=== PATIENT | male | born 1930 | race Caucasian/White ===

== ENCOUNTER 2018-02-11 07:13 | Day surgery (SDC) | payer MEDICARE, OTHER ==
[~2018-02-11 07:13] MED LIST: Sodium Chloride 0.9% 10 ML Syringe FLUSH PRN
[2018-02-11] MEDS ORDERED: Lactated Ringers 1,000 ML IV SCH (08:30)
[2018-02-11] MEDS ORDERED: Propofol 200 MG/20 ML SDV IV ONE (09:25)
--- NOTE | 2018-02-11 14:38 | OR ---
DATE OF OPERATION: 02/11/2018 SURGEON: Lavell Gil MD PREOPERATIVE DIAGNOSIS: Cataract, right eye. POSTOPERATIVE DIAGNOSIS: Cataract, right eye. PROCEDURES: Phacoemulsification of cataract right eye with the placement of an Gilmore model, ZCB00, 21.0 diopter, foldable, posterior chamber intraocular lens. WARP STARTER: None. DESCRIPTION OF PROCEDURE: Peribulbar anesthetic was performed using a mixture of 2% lidocaine with Wydase. The patient was prepped and draped in the usual fashion. A 3 mm fornix based conjunctival flap was performed at the 10 o'clock position. Hemostasis was obtained using diathermy, and a 2.8 mm grooved near clear corneal incision was then made. A stab incision was made into the anterior chamber at the 12 o'clock position and a second stab wound incision was made underlying the grooved near clear corneal incision. Viscoat was instilled into the anterior chamber, and a continuous tear capsulotomy was performed. Hydrodissection was accomplished with balanced salt solution, and the nucleus was removed in a divide and conquer fashion. The remaining cortical material was removed with the irrigation and aspiration unit. Viscoat was instilled into the anterior chamber, and an Gilmore model, ZCB00, 21.0 diopter, foldable, posterior chamber intraocular lens was placed into the capsular bag, the haptics being positioned at the 3 and 9 o'clock positions. The residual Viscoat was removed from the anterior chamber and the anterior chamber reformed with balanced salt solution. The wound was checked and noted to be watertight. The conjunctiva was secured in its original position with diathermy. Alphagan and Maxitrol Ointment were then placed into the patient's eye. The patient tolerated the procedure well and it was without complication. Elapsed phacoemulsification time was 49.1 seconds. Postoperative instructions as related to activities as well as medications were reviewed with the patient. The patient was instructed to return to see me on the day following surgery for the first postoperative check. The patient was also instructed to contact me prior to that time if the patient was to have any problems. /[id number] DEG/MODL CC: JEFERSON CHRISTINE PA-C MTDD
== END 2018-02-11 11:25 | disposition home or self-care (01) ==
LOC: FB.SDS 07:13
PROVIDERS: ATTEND Ophthalmology
DX: E11.36 Type 2 diabetes mellitus with diabetic cataract (principal); H25.813 Combined forms of age-related cataract, bilateral; I11.0 Hypertensive heart disease with heart failure; I50.9 Heart failure, unspecified; K21.9 Gastro-esophageal reflux disease without esophagitis; N40.1 Benign prostatic hyperplasia with lower urinary tract symptoms; Z79.4 Long term (current) use of insulin; Z79.82 Long term (current) use of aspirin; Z79.899 Other long term (current) drug therapy; Z95.1 Presence of aortocoronary bypass graft; Z87.891 Personal history of nicotine dependence
CPT/HCPCS: 00142; 66984; 82962; C1780; J7050; J7120; J2704

== ENCOUNTER 2018-03-11 07:53 | Day surgery (SDC) | payer MEDICARE, OTHER ==
[2018-03-11] MEDS ORDERED: Lactated Ringers 1,000 ML IV SCH (08:15)
[2018-03-11] MEDS ORDERED: Propofol 200 MG/20 ML SDV IV ONE (10:00)
--- NOTE | 2018-03-12 09:49 | OR ---
DATE OF OPERATION: 03/11/2018 SURGEON: Lavell Gil MD PREOPERATIVE DIAGNOSIS: Cataract, left eye. POSTOPERATIVE DIAGNOSIS: Cataract, left eye. PROCEDURES: Phacoemulsification of cataract, left eye, with the placement of an Gilmore model, ZCB00, 21.0 diopter, foldable, posterior chamber intraocular lens. LINER CHECKER: None. DESCRIPTION OF PROCEDURE: Peribulbar anesthetic was performed using a mixture of 2% lidocaine with Wydase. The patient was prepped and draped in the usual fashion. A 3 mm fornix based conjunctival flap was performed at the 10 o'clock position. Hemostasis was obtained using diathermy, and a 2.8 mm grooved near clear corneal incision was then made. A stab incision was made into the anterior chamber at the 12 o'clock position and a second stab wound incision was made underlying the grooved near clear corneal incision. Viscoat was instilled into the anterior chamber, and a continuous tear capsulotomy was performed. Hydrodissection was accomplished with balanced salt solution, and the nucleus was removed in a divide and conquer fashion. The remaining cortical material was removed with the irrigation and aspiration unit. Viscoat was instilled into the anterior chamber, and Gilmore model, ZCB00, 21.0 diopter, foldable, posterior chamber intraocular lens was placed into the capsular bag, the haptics being positioned at the 3 and 9 o'clock positions. The residual Viscoat was removed from the anterior chamber and the anterior chamber reformed with balanced salt solution. The wound was checked and noted to be watertight. The conjunctiva was secured in its original position with diathermy. Alphagan and Maxitrol Ointment were then placed into the patient's eye. The patient tolerated the procedure well and it was without complication. Elapsed phacoemulsification time was 35.9 seconds. Postoperative instructions as related to activities as well as medications were reviewed with the patient. The patient was instructed to return to see me on the day following surgery for the first postoperative check. The patient was also instructed to contact me prior to that time if the patient were to have any problems. /[id number] DEG/MODL CC: JEFERSON CHRISTINE PA-C
== END 2018-03-11 11:25 | disposition home or self-care (01) ==
LOC: FB.SDS 07:53
PROVIDERS: ATTEND Ophthalmology
DX: E11.36 Type 2 diabetes mellitus with diabetic cataract (principal); H25.812 Combined forms of age-related cataract, left eye; H52.13 Myopia, bilateral; H52.223 Regular astigmatism, bilateral; H52.4 Presbyopia; I25.119 Atherosclerotic heart disease of native coronary artery with unspecified angina pectoris; I11.0 Hypertensive heart disease with heart failure; I50.9 Heart failure, unspecified; K21.9 Gastro-esophageal reflux disease without esophagitis; N40.1 Benign prostatic hyperplasia with lower urinary tract symptoms; Z98.41 Cataract extraction status, right eye; Z96.1 Presence of intraocular lens; Z79.84 Long term (current) use of oral hypoglycemic drugs; Z79.899 Other long term (current) drug therapy; Z87.891 Personal history of nicotine dependence
CPT/HCPCS: 00142-QZ; 82962; C1780; J2704; J7120

== ENCOUNTER 2018-10-10 07:52 | Day surgery (SDC) | payer MEDICARE, OTHER ==
[2018-10-10] MEDS ORDERED: Lidocaine 2% 100 MG/5 ML Syringe IVPUSH ONE (07:53)
[2018-10-10] MEDS ORDERED: Propofol 200 MG/20 ML SDV IV ONE (07:53)
[2018-10-10] MEDS ORDERED: Sodium Chloride 0.9% 10 ML Syringe FLUSH PRN (08:15)
[2018-10-10] MEDS: Lactated Ringers 1,000 ML IV SCH (08:33)
--- NOTE | 2018-10-10 09:46 | PCM.OPNOTE ---
- General Post-Op/Procedure Note Date of Surgery/Procedure: 10/10/18 Operative Procedure(s): egd with bx Findings: duodenitis with atrophic appearing mucosa gastritis with punctate ulcerations Pre Op Diagnosis: ruq abd pain Post-Op Diagnosis: duodenitis with atrophic appearing mucosa. gastritis with punctate ulcerations Anesthesia Technique: [facility] [place] Primary Surgeon: Faisal Marie Anesthesia Provider: Juan Millan Pathology: stomach and duodenum Complications: None Condition: Good Free Text/Narrative:: see dictation
[2018-10-10 10:51] VITALS: BP 142/72
--- NOTE | 2018-10-10 17:06 | OR ---
DATE OF OPERATION: 10/10/2018 SURGEON: Faisal Marie MD PROCEDURE PERFORMED: Upper endoscopy with cold forceps biopsy. PREOPERATIVE DIAGNOSIS: Right upper quadrant abdominal pain. POSTOPERATIVE DIAGNOSES: Duodenitis and gastritis with ulceration. INDICATIONS FOR PROCEDURE: This is an 87-year-old white male, referred with above-mentioned history of some upper abdominal pain. Workup to date of his gallbladder has essentially been unremarkable. He was offered and accepted an EGD to rule out peptic ulcer disease. DESCRIPTION OF OPERATION: After an excellent IV sedation was administered, bite block was inserted. Flexible endoscope was passed without difficulty down the patient's esophagus. Stomach was insufflated, scope passed through pylorus to second portion of the duodenum and slowly withdrawn. The following findings were noted. The duodenum, especially in the first portion appeared to have some duodenitis. Mucosa also appeared to be atrophic. Multiple biopsies were taken. Stomach; in the area of the antrum, there were evidence of gastritis as well as what appears to be punctate healing ulcerations. Multiple biopsies were taken of this area. Esophagus, no marked abnormalities. Stomach was deflated. Scope was removed. The patient tolerated the procedure well. /[id number] /MODL
== END 2018-10-10 10:51 | disposition home or self-care (01) ==
LOC: FB.SDS 07:52
PROVIDERS: ATTEND Surgery
DX: K29.50 Unspecified chronic gastritis without bleeding (principal); K29.80 Duodenitis without bleeding; K25.9 Gastric ulcer, unspecified as acute or chronic, without hemorrhage or perforation; K31.89 Other diseases of stomach and duodenum; I11.0 Hypertensive heart disease with heart failure; I50.9 Heart failure, unspecified; I25.810 Atherosclerosis of coronary artery bypass graft(s) without angina pectoris; I25.10 Atherosclerotic heart disease of native coronary artery without angina pectoris; I25.2 Old myocardial infarction; E11.9 Type 2 diabetes mellitus without complications; K21.9 Gastro-esophageal reflux disease without esophagitis; Z88.8 Allergy status to other drugs, medicaments and biological substances; Z95.1 Presence of aortocoronary bypass graft; Z87.891 Personal history of nicotine dependence; Z80.0 Family history of malignant neoplasm of digestive organs; Z79.84 Long term (current) use of oral hypoglycemic drugs; Z79.82 Long term (current) use of aspirin; Z79.899 Other long term (current) drug therapy
CPT/HCPCS: 00731-QZ; 36415; 82962; 84132; 88305; 88342; J2001; J2704; J7120